=== PATIENT | female | born 1970 | race Caucasian/White ===

== ENCOUNTER → 2020-01-08 | Outpatient (CLI) | payer OTHER ==
[~2020-01-08] MED LIST: GADOBENATE DIMEGLUMINE 1 ML IV ONE; SODIUM CHLORIDE 0.9% 100 ML ONE
--- NOTE | 2020-01-08 17:22 | Diagnostic Imaging Report ---
Thyroid ultrasound. History: Thyroid nodules. Comparison: None available. Discussion: Transverse and longitudinal images of the thyroid were obtained demonstrating normal echogenicity of the thyroid. The sizes of the lobes are normal with the right thyroid lobe measuring 4.6 x 1.2 x 1.2 cm and the left measuring 4.3 x 1.3 x 1.2 cm. The isthmus is within normal limits. Nodules: Right- oval circumscribed hypoechoic taller than wide nodule is present in the lower pole measuring 0.8 x 0.6 x 0.6 cm, round 0.4 cm hypoechoic nodule is present in the interpolar region. Left- oval hypoechoic solid nodule in the lower pole measuring 1.4 x 0.5 x 1.0 cm, oval hypoechoic solid nodule in the upper pole measuring 0.9 x 0.5 x 0.6 cm. IMPRESSION: Bilateral thyroid nodules. 0.8 cm right nodule is TR5, 1.4 cm left nodule is TR4, recommend six-month follow-up for both. Signed by: Manish Arteaga on 01/08/2020 5:19 PM
--- NOTE | 2020-01-09 10:05 | Diagnostic Imaging Report ---
TECHNIQUE: MRI of the abdomen WITHOUT and WITH intravenous contrast. INDICATION: ^SECONDARY CARCINOID TUMORS OF LIVER. COMPARISON: None. FINDINGS: LOWER THORAX: Unremarkable. LIVER: No hepatic signal abnormality. There are greater than 30 masses scattered throughout both lobes of the liver (with the bulk of the tumors in the left hepatic lobe) which are mildly hyperintense on T2-weighted imaging, restricted diffusion, and peripherally progressively enhance with examples as follow: * A mass in segment II/III measures 3.7 x 4.2 cm on series 10 image 149. * A mass in segment II measures 2.5 x 2.9 cm on series 10 image 144. * A mass in segment VIII measures 2.4 x 2 cm on series 10 image 147. BILIARY: Gallbladder is unremarkable. No biliary ductal dilatation or filling defect. SPLEEN: No splenomegaly. PANCREAS: No focal masses or ductal dilatation. ADRENALS: No adrenal nodules. KIDNEYS/URETERS: No hydronephrosis or solid mass lesions. PERITONEUM/RETROPERITONEUM: No free fluid. LYMPH NODES: No lymphadenopathy. VESSELS: Arterial system is difficult to evaluate due to motion artifact. 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 GI TRACT: No distention or wall thickening. BONES AND SOFT TISSUES: Unremarkable. IMPRESSION: There are greater than 30 masses scattered throughout both lobes of the liver which are consistent with metastases. Signed by: Lennox French JR, MD on 01/09/2020 10:01 AM
== END ==
LOC: MRI 14:16
PROVIDERS: ATTEND Internal Medicine
DX: C73 Malignant neoplasm of thyroid gland (principal)
CPT/HCPCS: 74183; 76536

== ENCOUNTER → 2020-06-14 | Outpatient (CLI) | payer OTHER ==
[~2020-06-14] MED LIST changes: -SODIUM CHLORIDE 0.9% 100 ML ONE; +SODIUM CHLORIDE 0.9% 50ML 50 ML ONE
== END ==
LOC: MRI 09:53
PROVIDERS: ATTEND Internal Medicine
DX: C78.02 Secondary malignant neoplasm of left lung (principal)
CPT/HCPCS: 74183; A9577